=== PATIENT | female | born 2000 | race Two or more races ===

== ENCOUNTER 2025-01-11 21:37 | Inpatient (IN) ==
[2025-01-11 22:01] VITALS: BMI 29.3
[2025-01-11 22:32] LABS: BILIRUBIN,URINE NEGATIVE (NEGATIVE); BLOOD/HEMOGLOBIN,URINE NEGATIVE (NEGATIVE); GLUCOSE, URINE NEGATIVE (NEGATIVE); KETONES,URINE NEGATIVE (NEGATIVE); LEUKOCYTE ESTERASE ,URINE 1+ (NEGATIVE); NITRITES,URINE NEGATIVE (NEGATIVE); PROTEIN,URINE 2+ (NEGATIVE); UROBILINOGEN,URINE NORMAL (NORMAL)
[2025-01-11 22:41] LABS: APPEARANCE,URINE CLEAR (CLEAR); BACTERIA,URINE NEGATIVE /HPF (NEGATIVE); COLOR,URINE YELLOW (YELLOW); RBC,URINE NONE SEEN /HPF (0-3); SQUAMOUS EPITHELIAL CELL,UR RARE /HPF (NEGATIVE)
[2025-01-11 22:42] LABS: AMNISURE ROM TEST NO MEMBRANES RUPTURE (NO RUPTURE)
[2025-01-11] MEDS ORDERED: ZOFRAN INJ 4 MG VIAL IVP PRN (22:42)
[2025-01-11] MEDS ORDERED: NUBAIN INJ 20 MG AMP IVP PRN (22:42)
[2025-01-11] MEDS ORDERED: REGLAN INJ 10 MG VIAL IVP PRN (22:42)
[2025-01-11] MEDS: LR 1,000 ML IV 1,000 ML IV ONE (22:45)
[2025-01-11 23:00] LABS: EOSINOPHILS % (AUTO) 0.2 % (0.9-2.9); MONOCYTES # (AUTO) 0.5 x10^3/uL (0.3-0.8); NEUTROPHILS # (AUTO) 10.8 x10^3/uL (2.2-4.8); WHITE BLOOD COUNT 12.7 X10^3/uL (3.6-10.0)
[2025-01-11] MEDS: AMPICILLIN VIAL 2 GRAM ONE (23:00)
[2025-01-11] MEDS: NS 100 ML IV 100 ML ONE (23:00)
[2025-01-11 23:05] LABS: BLOOD UREA NITROGEN 13 mg/dL (7-18); CALCIUM 8.8 mg/dL (8.5-10.1); CHLORIDE 102 mmol/L (98-107); CREATININE 0.67 mg/dL (0.55-1.02); GLUCOSE 86 mg/dL (65-99); POTASSIUM 3.9 mmol/L (3.5-5.1); SODIUM 137 mmol/L (136-145); eGFR NON BLACK RACES > 60 (>60)
[2025-01-11] MEDS: PITOCIN ONE (23:24)
[2025-01-11] MEDS: OXYTOCIN 20 UNIT/1,000 ML-NS 20 UNIT/1,000 ML PLAST..BAG IV PRN (23:25)
[2025-01-11 23:36] LABS: BASOPHILS % (AUTO) 0.4 % (0.2-1.0); HEMATOCRIT 32.6 % (36.0-47.0); HEMOGLOBIN 10.4 g/dL (12.0-16.0); LYMPHOCYTES # (AUTO) 1.3 X10^3/uL (1.3-2.9); LYMPHOCYTES % (AUTO) 10.6 % (21.0-51.0); MEAN CORPUSCULAR HEMOGLOBIN 21.3 pg (27.0-34.0); MEAN CORPUSCULAR HGB CONC 31.8 g/dL (33.0-35.0); MEAN CORPUSCULAR VOLUME 66.9 fL (80.0-100.0); MEAN PLATELET VOLUME 10.2 fL (7.4-11.0); MONOCYTES % (AUTO) 4.1 % (0.0-13.0); NEUTROPHILS % (AUTO) 84.7 % (42.0-75.0); PLATELET COUNT 201 X10^3/uL (150.0-450.0); RED BLOOD COUNT 4.87 X10^6/uL (3.5-5.4)
[2025-01-11 23:41] LABS: ANISOCYTOSIS SLIGHT; HYPOCHROMASIA 2+; MICROCYTOSIS 1+; PLATELET MORPHOLOGY COMMENT NORMAL (NORMAL)
[2025-01-12] MEDS: PITOCIN IVP ONE (00:24)
[2025-01-12] MEDS: OXYTOCIN 20 UNIT/1,000 ML-NS 20 UNIT/1,000 ML PLAST..BAG IV SCH (00:30)
[2025-01-12 04:52] LABS: HEMATOCRIT 30.2 % (36.0-47.0); HEMOGLOBIN 9.7 g/dL (12.0-16.0)
[2025-01-12] MEDS: LR 1,000 ML IV 1,000 ML IV SCH (07:08)
[2025-01-12] MEDS: COLACE CAP 100 MG PO STA (09:28)
[2025-01-12] MEDS: MIRALAX POWDER (1 DOSE 17 G) PO STA (09:29)
[2025-01-12] MEDS: MOTRIN TAB 800 MG PO PRN (09:29)
[2025-01-12] MEDS ORDERED: MIRALAX POWDER (1 DOSE 17 G) PO SCH (21:00)
[2025-01-13 00:51] VITALS: O2SAT 98
[2025-01-13 10:33] VITALS: BP 116/61; PULSE 64; RESP 21; TEMP 97.4
== END 2025-01-13 11:45 | disposition home or self-care (01) | DRG 807 ==
LOC: ER 21:37 → LD 22:32 → MED/SURG 01-12 01:00
PROVIDERS: ADMIT Obstetrics & Gynecology Obstetrics; ATTEND Obstetrics & Gynecology Obstetrics
DX: Z3A.39 39 weeks gestation of pregnancy; O70.0 First degree perineal laceration during delivery; Z37.0 Single live birth; R10.11 Right upper quadrant pain; O26.893 Other specified pregnancy related conditions, third trimester